=== PATIENT | female | born 1965 | race Caucasian/White ===

== ENCOUNTER 2020-04-27 16:31 | Emergency (ER) | payer BC ==
[~2020-04-27] VITALS: Ht 172.7 cm; Wt 102.0 kg
--- NOTE | 2020-04-27 17:30 | RAD ---
INDICATION: Reason: covid positive 6 days ago, continued fever. / Spl. Instructions: / History: COMPARISON: None. FINDINGS: Single view of chest obtained. Hypoexpanded examination. Mild interstitial prominence with focal opacity at the left lung base. Degenerative changes the spine. Cardiac silhouette is unremarkable IMPRESSION: * Mild interstitial prominence bilaterally with a more focal opacity at the left lung base. Infectious etiology is within the differential although mild pulmonary vascular congestion with left basilar atelectasis can also have this appearance Electronically signed by: Coy Cabrera MD (04/27/2020 5:27 PM) [id number]
[2020-04-27 17:49] LABS: BASO # 0.1 x10^3/uL (0.0-0.2); BASO % 1 % (0-3); EOS # 0.1 x10^3/uL (0.0-0.7); EOS % 1 % (0-3); HEMATOCRIT 39.5 % (36.0-47.0); HEMOGLOBIN 13.7 g/dL (12.0-15.5); LYMPH % 14 % (24-48); MEAN CORPUSCULAR HEMOGLOBIN 31 pg (25-35); MEAN CORPUSCULAR HGB CONC 35 g/dL (31-37); MEAN CORPUSCULAR VOLUME 89 fL (79-100); MONO # 0.6 x10^3/uL (0.0-1.1); MONO % 8 % (0-9); NEUT # 5.4 x10^3/uL (1.8-7.7); NEUT % 76 % (31-73); PLATELET COUNT 232 x10^3/uL (140-400); RED BLOOD COUNT 4.43 x10^6/uL (3.50-5.40); RED CELL DISTRIBUTION WIDTH 13.6 % (11.5-14.5); WHITE BLOOD COUNT 7.1 x10^3/uL (4.0-11.0)
--- NOTE | 2020-04-27 17:57 | PHYS DOC ---
Past Medical History Past Medical History: Depression, Diabetes-Type II, High Cholesterol, Hyp ertension Past Surgical History: Other Additional Past Surgical Histo: vaginal fibroidmatosis, lumpectomy Smoking Status: Never Smoker Alcohol Use: None General Adult EDM: Chief Complaint: FEVER HPI: HPI: Patient is a 55 year old female who presents to the emergency department with complaints of continued fever. She reports that her primary care doctor told her to go to the emergency room for evaluation after she continues to have fevers. She reports that she tested positive for COVID 6 days ago. She denies any cough, shortness of breath, wheezing, chest pain, palpitations, dizziness, headache, sore throat, abdominal pain, nausea, vomiting, or diarrhea. Patient states she simply continues to have a fever so that is why she came to the emergency room. She currently denies any pain. Review of Systems: Review of Systems: Constitutional: See HPI Eyes: Denies change in visual acuity. [] HENT: Denies nasal congestion or sore throat. [] Respiratory: Denies cough or shortness of breath. [] Cardiovascular: Denies chest pain or edema. [] GI: Denies abdominal pain, nausea, vomiting, or diarrhea. [] : Denies dysuria. [] Musculoskeletal: Denies back pain or joint pain. [] Integument: Denies rash. [] Neurologic: Denies headache, focal weakness or sensory changes. [] Psychiatric: Denies depression or anxiety. [] Heart Score: Risk Factors: Risk Factors: DM, Current or recent (<one month) smoker, HTN, HLP, family history of CAD, obesity. Risk Scores: Score 0 - 3: 2.5% MACE over next 6 weeks - Discharge Home Score 4 - 6: 20.3% MACE over next 6 weeks - Admit for Clinical Observation Score 7 - 10: 72.7% MACE over next 6 weeks - Early Invasive Strategies Physical Exam: PE: Constitutional: Well developed, well nourished, no acute distress, non-toxic appearance. [] HENT: Normocephalic, atraumatic, bilateral external ears normal, nose normal. [] Eyes: PERRLA, EOMI, conjunctiva normal, no discharge. [] Neck: Normal range of motion, no stridor. [] Cardiovascular:Heart rate regular rhythm Lungs & Thorax: Respirations even and unlabored, no retractions, no respiratory distress, speaking full sentences Skin: Warm, dry, no erythema, no rash. [] Extremities: No cyanosis, ROM intact, no edema. [] Neurologic: Alert and oriented X 3, no focal deficits noted. [] Psychologic: Affect normal, judgement normal, mood normal. [] Current Patient Data: Vital Signs: Vital Signs Date Time Temp Pulse Resp B/P (MAP) Pulse Ox O2 Delivery O2 Flow Rate FiO2 04/27/20 16:52 99.1 87 20 157/67 (97) 96 Room Air 99.1 EKG: EKG: [] Radiology/Procedures: Radiology/Procedures: PROCEDURE: CHEST AP ONLY INDICATION: Reason: covid positive 6 days ago, continued fever. / Spl. Instructions: / History: COMPARISON: None. FINDINGS: Single view of chest obtained. Hypoexpanded examination. Mild interstitial prominence with focal opacity at the left lung base. Degenerative changes the spine. Cardiac silhouette is unremarkable IMPRESSION: * Mild interstitial prominence bilaterally with a more focal opacity at the left lung base. Infectious etiology is within the differential although mild pulmonary vascular congestion with left basilar atelectasis can also have this appearance [] Course & Med Decision Making: Course & Med Decision Making Pertinent Labs and Imaging studies reviewed. (See chart for details) 55-year-old female presented to the emergency department for evaluation of continued fevers after being diagnosed with COVID-19 Chest x-ray is concerning for bilateral pneumonia. The patient's vital signs were stable throughout emergency department visit. Her oxygen was 95 to 97% on room air. The patient denied any shortness of breath, increased work of breathing, or wheezing. CBC and CMP were unremarkable. Prescription was written for Z-Saw and also a pro-air inhaler. I advised the patient to use the inhaler if she becomes short of breath. Encouraged her to return to the emergency room if her symptoms worsen or her fever stops responding to Tylenol and ibuprofen. Patient verbalized an understanding of home care, medications, follow-up, and return to ED instructions and was in agreement with the plan of care. [] Dragon Disclaimer: Dragon Disclaimer: This electronic medical record was generated, in whole or in part, using a voice recognition dictation system. Departure Departure Impression: Primary Impression: Pneumonia due to COVID-19 virus Disposition: HOME, SELF-CARE Condition: STABLE Referrals: YULIANA YODER MD (PCP) Patient Instructions: Pneumonia, Adult, [id number] Additional Instructions: You have been tested for or diagnosed with COVID-19. It is an infection caused by a new type of coronavirus. COVID-19 will cause cold-like or mild flu symptoms in most. It can cause more severe symptoms like problems breathing in some. There is no treatment for COVID-19. The body will clear the infection over time. Self-care will help to ease discomfort. Steps to Take: Self-Care Rest as needed. Healthy habits may help you feel better. Steps include: Choose healthy foods including fruits and vegetables. Drink water throughout the day. Get plenty of sleep each night. If you smoke, try to quit. It may ease breathing. Avoid alcohol. Keep Others Healthy The virus can spread to others. Droplets are released every time you sneeze or cough. The droplets can get into the mouth, nose, or eyes of people near you and lead to infection. To lower the chances of spreading COVID-19 to others: Stay at home until your doctor has said it is safe to leave. If you tested positive this will mean staying isolated until both of the following are true: At least 7 days have passed since the start of illness. You are free of fever for at least 72 hours without the use of medicine. During this time: - Avoid public areas, events, or transportation. Do not return to work or school until your doctor has said it is safe to do so. - Call ahead if you need to go to a medical center. Let them know you may have COVID-19. It will help them guide you where to go. They may also ask you to wear a facemask when you come to the office. - If you call for emergency medical services, let them know you may have COVID- 19. While at home: - Try to avoid close contact with others. Stay about 6 feet away. - If possible, spend most of your time in a separate room from others. - Use a face mask if you will be in close contact with others such as sharing a room or vehicle. - Have someone wipe down common surfaces in the home. Use household acquisition editor every day on areas like doorknobs, counters, or sinks. - Cough or sneeze into a tissue. Throw the tissue away right after use. If a tissue is not available, cough or sneeze into your elbow. - Wash your hands often. Wash them after sneezing or coughing. Use soap and water and wash for at least 20 seconds. Alcohol based hand grave cleaner can be used if soap and water is not available. - Do not prepare food for others. Avoid sharing personal items like forks, spoons, or toothbrushes. - Avoid close contact with pets while you are sick. There is no evidence of the virus passing to pets. This is a safety step until more is known about this virus. Isolation can be frustrating. Social interaction can help. Keep in touch with friends and family through phone and tech options. You can still interact with others in your home, just keep a safe distance of about 6 feet. Follow-up: Your doctors office will check in with you to see if there are any changes in your health. You may be asked to keep track of symptoms to share with them. They will also let you know when you are clear to be in public again. Problems to Look Out For: Contact your doctor if your recovery is not going as you expect. Get emergency care if you have problems such as: - Trouble breathing - Nonstop chest pain or pressure - Changes in awareness, confusion, or problems waking - Lips or face have bluish color - Worsening of symptoms If you think you have an emergency, call for emergency medical services right away. As taken from [facility] Albuterol Sulfate (Proair Hfa) 8.5 Gm Hfa.aer.ad 2 PUFF IH PRN Q4-6HRS PRN for shortness of breath for 21 Days, #1 INHALER 0 Refills Prov: SANDY PAVON APRN 04/27/20 Azithromycin (AZITHROMYCIN TABLET) 250 Mg Tablet 1 PKG PO UD for 5 Days, #6 TAB 0 Refills 2 the first day followed by 1 for days 2-5 Prov: SANDY PAVON APRN 04/27/20 Justicifation of Admission Dx: Justifications for Admission: Justification of Admission Dx: N/A SANDY PAVON APRN Apr 27, 2020 17:57
[2020-04-27 18:05] LABS: GFR 57.4; POTASSIUM 3.6 mmol/L (3.5-5.1)
[2020-04-27 18:11] LABS: ALBUMIN 3.3 g/dL (3.4-5.0); ALBUMIN/GLOBULIN RATIO 0.8 (1.0-1.7); MAGNESIUM 2.1 mg/dL (1.8-2.4); TOTAL BILIRUBIN 0.5 mg/dL (0.2-1.0); TOTAL PROTEIN 7.7 g/dL (6.4-8.2)
[2020-04-27] MEDS ORDERED: AZIT250T6 PO (18:45)
[2020-04-27] MEDS ORDERED: ALBU2.5V8 IH (18:45)
[2020-04-27 18:51] VITALS: BP 147/94
== END 2020-04-27 19:00 | disposition home or self-care (01) ==
LOC: ER 16:31
DX: U07.1 COVID-19 (principal); J12.89 Other viral pneumonia; E11.9 Type 2 diabetes mellitus without complications; E78.00 Pure hypercholesterolemia, unspecified; I10 Essential (primary) hypertension
CPT/HCPCS: 36415; 71045; 80053; 83735; 85025; 99285